=== PATIENT | female | born 1995 | race Asian ===

== ENCOUNTER 2018-09-08 12:42 | Emergency (ER) | payer SELFPAY | END 2018-09-08 13:08 | disposition home or self-care (01) | LOC: ERS 12:42 | DX: S80.212A Abrasion, left knee, initial encounter (principal); S80.211A Abrasion, right knee, initial encounter; V89.2XXA Person injured in unspecified motor-vehicle accident, traffic, initial encounter | CPT/HCPCS: 99283 ==

== ENCOUNTER 2018-12-27 11:43 | Inpatient (IN) | payer SELFPAY ==
[~2018-12-27 11:43] MED LIST: ISOVUE-370 76%-LOCM 1 ML ONE
[2018-12-27 14:45] LABS: ALT (SGPT) 9 U/L (8-55); AST (SGOT) 15 U/L (5-34); Albumin 4.9 g/dL (3.5-5.0); Alkaline Phosphatase 75 U/L (40-150); Anion Gap 10 mmol/L (10-20); BUN (Urea Nitrogen) 10 mg/dL (7.0-18.7); Bilirubin, Total 1.1 mg/dL (0.2-1.2); Calc. Creatinine Clearance 0 mL/min (70-130); Calcium 10.1 mg/dL (7.8-10.44); Carbon Dioxide 27 mmol/L (22-29); Chloride 105 mmol/L (98-107); Estimated GFR-MDRD Greater than 90; Globulin 3.2 g/dL (2.4-3.5); Glucose 70 mg/dL (70-105); Potassium 3.9 mmol/L (3.5-5.1); Protein, Total 8.1 g/dL (6.0-8.3); Sodium 138 mmol/L (136-145)
[2018-12-27] MEDS ORDERED: metroNIDAZOLE 500 MG/100 ML BAG ONE (17:10)
[2018-12-27] MEDS ORDERED: Bupivacaine/Epinephrine 0.25% 30 ML VIAL ONE (17:21)
[2018-12-27] MEDS ORDERED: cefTRIAXone\\ROCEPHIN 1 GM VIAL ONE (17:49)
[2018-12-27] MEDS ORDERED: Fentanyl 100 MCG/2 ML VIAL ONE (18:29)
[2018-12-27] MEDS ORDERED: Midazolam HCl 2 mg/2 ml Vial ONE (18:36)
--- NOTE | 2018-12-27 18:47 | HP ---
CHIEF COMPLAINT: Right lower quadrant abdominal pain. 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 She had onset of right lower quadrant abdominal pain yesterday evening. She has not vomited. The pain persisted. [facility] and . Her white blood cell count was essentially normal, but because of her ongoing pain, she was referred to the hospital for further evaluation. CT scan was obtained revealing findings consistent with appendicitis. PAST MEDICAL HISTORY: Negative. PAST SURGICAL HISTORY: None. MEDICATIONS: None. ALLERGIES: PENICILLIN. 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 She does not smoke. REVIEW OF SYSTEMS: Otherwise unremarkable. FAMILY HISTORY: Noncontributory. PHYSICAL EXAMINATION: VITAL SIGNS: She is afebrile. EXTREMITIES: Within normal limits. GENERAL: She is a well-developed, well-nourished, pleasant, thin, female. She is in no acute distress in regard to her abdomen. She is somewhat nervous about surgery and tearful at times. HEAD, EYES, EARS, NOSE, AND THROAT: Unremarkable. NECK: Supple without mass or tenderness. LUNGS: Clear to auscultation throughout. CARDIAC: Regular rate and rhythm without murmur. ABDOMEN: Soft with normoactive bowel sounds. She is focally tender in the right lower quadrant with guarding. EXTREMITIES: Unremarkable. ASSESSMENT: The patient with acute appendicitis. PLAN: Laparoscopic appendectomy. I have discussed the operation in detail with the patient as well as potential risks. She understands to proceed with surgery at this time. Job ID: [id number]
--- NOTE | 2018-12-27 18:49 | CT ---
CT ABDOMEN AND PELVIS WITH ORAL AND IV CONTRAST: 12/27/18 HISTORY: Right lower quadrant pain. FINDINGS: Lung bases are clear. The liver, spleen, pancreas, adrenal gland and kidneys are normal. No calcified gallstones are seen. No free air or free fluid or lymphadenopathy is seen in the abdomen or pelvis. The uterus and ovaries are present. There is a significant mass in the uterus likely fibroid. The small bowel loops are not abnormally dilated. The appendiceal diameter is at upper limits of norm al. There is fluid in the appendix. No significant periappendiceal inflammatory changes are seen. Th ere is enhancement of the wall of the appendix. IMPRESSION: Findings are suspicious for early/developing appendicitis. Discussed over the telephone with ER physician, Dr. Ahmet Bob at 4:40 p.m. POS: OFF
[2018-12-27] MEDS ORDERED: Meperidine HCl/PF 25 MG/ML VIAL ONE (19:56)
[2018-12-27] MEDS ORDERED: Ondansetron PF 4 MG/2 ML Vial ONE (20:05)
--- NOTE | 2018-12-28 08:59 | OP ---
DATE OF PROCEDURE: 12/27/2018 PREOPERATIVE DIAGNOSIS: Acute appendicitis. POSTOPERATIVE DIAGNOSIS: Acute appendicitis. OPERATION PERFORMED: Laparoscopic appendectomy. ANESTHESIA: General endotracheal. INDICATIONS FOR PROCEDURE: The patient is a 23-year-old [place] female. She presented with findings of acute appendicitis, which was confirmed on CT scan. She was taken to the operating room for laparoscopic appendectomy. DESCRIPTION OF OPERATION: Informed consent was obtained. The patient was taken to the operating room, where general endotracheal anesthesia was obtained with the patient in supine position. Abdomen was prepped with ChloraPrep and draped in sterile fashion. Local anesthetic was infiltrated with 0.25% Marcaine with epinephrine. A 5-mm infraumbilical incision was created through which a Veress needle was passed into the peritoneal cavity. Pneumoperitoneum was established using carbon dioxide up to a pressure of 15 mmHg. A 5-mm trocar port was passed through the same incision and laparoscopic camera was passed through this port. Under direct vision, 2 additional ports were placed including a 5-mm left lower quadrant port and a 12-mm suprapubic port. Attention was turned to the right lower quadrant. The patient had a dilated inflamed appendix, clearly consistent with acute appendicitis. It appeared to be relatively early appendicitis, however. The mesoappendix was grasped and taken down using electrocautery. The base of the appendix was skeletonized using electrocautery. The appendix was divided at its base between 2 PDS Endoloop sutures. The appendiceal stump was cauterized. The appendix was placed in a specimen retrieval sac and removed through the suprapubic port. Fascia was closed with 0 Vicryl suture using a GraNee needle. Right lower quadrant was irrigated. All irrigant was aspirated. All ports and instruments were removed under direct vision. Pneumoperitoneum was carefully evacuated. 0.25% Marcaine with epinephrine was infiltrated at each port site and skin edges were approximated with 4-0 Monocryl subcuticular suture. Dermabond was placed externally. There were no complications. The patient tolerated the procedure well and was taken to recovery room in stable condition. Job ID: [id number]
== END 2018-12-27 21:25 | disposition home or self-care (01) | DRG 343 ==
LOC: ERS 11:43 → 3SE 18:37 → ERHOLD 23:10
PROVIDERS: ADMIT Specialist; ATTEND Specialist
PROC: 0DTJ4ZZ Resection of Appendix, Percutaneous Endoscopic Approach (ICD-10-PCS; principal; 2018-12-27)
DX: K35.80 Unspecified acute appendicitis (principal); Z88.0 Allergy status to penicillin
CPT/HCPCS: 74177; 80053; J0131; J0696; J2175; J2250; J2405; J3010